=== PATIENT | male | born 1990 | race Caucasian/White ===

== ENCOUNTER → 2024-06-19 14:26 | Outpatient (BNVA) | payer MEDICAID, SELFPAY | PROVIDERS: PCP Nurse Practitioner Family; Visit Provider Physician Assistant | DX: G56.21 Lesion of ulnar nerve, right upper limb; G56.01 Carpal tunnel syndrome, right upper limb | CPT/HCPCS: 73030; 73080 ==

== ENCOUNTER 2024-11-29 09:35 | Day surgery (SDC) | payer MEDICAID, SELFPAY ==
[2024-11-29] VITALS (10 sets, daily range): BP systolic 96–155; BP diastolic 56–98; PULSE 53–84; RESP 15–28; TEMP 36.4–36.9; O2SAT 94–100; BMI 26.9
[2024-11-29] MEDS: acetaminophen 1,000 MG/100 ML PIGGYBACK 400 MG IV (10:03)
[2024-11-29] MEDS: sodium chloride 0.9% 1,000 ML 30 ML IV (10:04)
[2024-11-29] MEDS: ketorolac 30 mg/mL INJ IVP (10:07)
[2024-11-29] MEDS: scopolamine 1 mg PATCH 1 PATCH TRANSDERMA (10:08)
--- NOTE | 2024-11-29 10:55 | W.PM.OPSUD ---
Surgery/Procedure H&P Update DATE OF PROCEDURE: November 29, 2024 DATE H&P PERFORMED: 11/13/24 H&P UPDATE INFORMATION: I have reviewed H&P completed within last 30 days, I have examined patient prior to procedure and No changes to prior documentation PREOP DIAGNOSIS: Right carpal tunnel syndrome, right cubital tunnel syndrome PRIMARY INDICATION FOR PROCEDURE: Right carpal tunnel syndrome, right cubital tunnel syndrome PLANNED PROCEDURE: Operation Date: 11/29/24 11:20 Proposed Procedures p RIGHT Carpal Tunnel Release(Right) - Marquez Guerra DO s RIGHT Cubital Tunnel Release(Right) - Marquez Guerra DO
--- NOTE | 2024-11-29 11:35 | SUR.PREOP ---
1130-block to right subaclavicar performd in ops at bedside by dr dooley. patient tolerated well
--- NOTE | 2024-11-29 11:36 | ANES.PROC ---
Anesthesia Procedures Procedure/Date: 11/29/24 Nerve Block ^: Nerve Block 1: Main Anesthesia: other (100 mcg fentanyl and 2 mg Versed) Time Out Performed: Yes Consent: requested by attending/covering physician and from patient Nerve block location: supraclavicular Anesthesia monitors applied: pulse oximetry, EKG, BP cuff and oxygen Nerve block position: supine Anesthetic Used: ropivicaine 0.5% Amount of anesthesia used (mL): 30 Ultrasound used to: recognize landmarks Nerve Stimulator Used?: Yes Interscalene/Femoral BLK: other needle (pjunk 4inch) Injection: neg aspiration of heme Patient Tolerated Procedure: well Complications: none Additional Comments: Decadron 4 mg added to block
--- NOTE | 2024-11-29 11:37 | ANES.PREANE2 ---
Pre-Anesthetic Assessment Height/Weight: Height 6 ft 2 in Weight 210 lb Temp Pulse Resp BP Pulse Ox O2 Del Method 97.6 F 84 17 155/86 97 Room Air 11/29/24 09:48 11/29/24 09:48 11/29/24 09:48 11/29/24 09:48 11/29/24 09:48 11/29/24 09:48 Preop Diagnosis: Right carpal tunnel syndrome, right cubital tunnel syndrome Operation Date: 11/29/24 11:20 Proposed Procedures p RIGHT Carpal Tunnel Release(Right) - Marquez Charlie, DO s RIGHT Cubital Tunnel Release(Right) - Marquez Charlie, DO Was Beta Carlos taken within 24 hours: N/A Was Clonidine taken within 24 hours: N/A Last intake: Intake Last Liquid Date 11/28/24 Last Liquid Time 23:45 Last Solid Date 11/28/24 Last Solid Time 23:15 Social Tobacco and No alcohol Exam alert, oriented x 3, clear to auscultation bilaterally and regular rate & rhythm Airway Submandibular: within normal limits Cervical ROM: within normal limits Mallampati: Class III Dentition: full Anesthetic Plan ASA status: 2 Anesthesia: Choice Other: No prior issues with anesthesia NPO since yesterday evening Current smoker Denies any cardiac issues METs greater than 4 Plan for preop nerve block Medications/Allergies Home Medications ?Medication ?Instructions ?Recorded ?Confirmed ?Last Taken ?Type celecoxib 50 mg capsule (Celebrex) 50 mg PO BID #30 caps 11/13/24 11/28/24 11/27/24 Rx bupropion HCl 100 mg tablet,12 hr 100 mg PO DAILY 11/28/24 11/28/24 11/28/24 History sustained-release (Wellbutrin SR) hydrocodone 7.5 mg-acetaminophen 1 tab PO Q6H PRN pain #20 tabs 11/29/24 Unknown Rx 325 mg tablet Allergies Allergy/AdvReac Type Severity Reaction Status Date / Time No Known Allergies Allergy Verified 11/29/24 09:45 Current Medications Generic Name Dose Route Start Last Admin Trade Name Freq PRN Reason Stop Dose Admin Sodium Chloride 1,000 mls @ 30 mls/hr 11/29/24 09:45 11/29/24 10:04 Sodium Chloride 0.9% IV 11/30/24 09:44 30 mls/hr .Q24H MARK Administration PFSH Anesthesia Social History Smoking and tobacco/nicotine status: unknown if used tobacco/nicotine
[2024-11-29] MEDS: ceFAZolin 2,000 MG in sodium chloride 0.9% (plus) 50 ML 100 MG IV (13:12)
--- NOTE | 2024-11-29 14:10 | PM.OP ---
Operative Report Date of procedure: November 29, 2024 Surgeon: Marquez Guerra DO Marketing Information Manager: Hammad Guerra PA-C: PA was necessary for assistance in this case with hand positioning to execute the procedure, retraction and protection of neurovascular structures as well as to assist with wound closure and dressing application. Procedure: Preoperative diagnosis: Right carpal tunnel syndrome Right cubital tunnel syndrome postop Diagnosis: Same Procedure done: Right carpal tunnel release Right?cubital tunnel tunnel release (ulnar nerve decompression at elbow) Surgeon: Marquez Guerra DO Estimated blood loss: 10 mL Tourniquet? 14 minutes IV fluids: 700 mL Complications: None Findings: See operative report narrative Condition: stable Disposition: same day Brief History: Patient's been seen and worked up in the outpatient setting and findings consistent with preoperative diagnosis.? Patient has right carpal tunnel syndrome as well as right?cubital tunnel syndrome which has been worked up in the outpatient setting has physical exam findings consistent with this as well as confirmatory nerve conduction study consistent with diagnosis.? Patient's failed conservative treatment.? As result through shared decision making agreed to proceed with? right carpal tunnel and right?cubital tunnel release with possible ulnar nerve transposition we talked about treatment options as far as nonoperative and operative intervention.? Understands risk benefits complication alternatives surgical nonsurgical treatment options.? Understanding his risks he agrees to proceed with surgical intervention. Understanding these risks he agrees to proceed with surgery.? Consent obtained in office. Procedure: Patient seen evaluate in the preoperative holding area.? Consent was reviewed and signed with patient.? Correct extremity marked.? Patient seen evaluated by anesthesia department once cleared for surgery was then taken back to the operative suite placed in supine position all bony prominences well-padded patient properly secured to bed.? right upper extremity placed onto armboard.? Nonsterile tourniquet applied right upper arm.? Patient then underwent anesthesia per the anesthesia department.? Patient's right upper extremity was then prepped and draped in standard orthopedic fashion.? Final timeout performed.? Patient received appropriate preoperative antibiotics. Esmarch was used exsanguinate the right upper extremity.? Tourniquet was insufflated to 250 mmHg. I started with the carpal tunnel release first.? I made a standard open carpal tunnel release starting with the distal most extent in the palm at the Jara's cardinal line and the incision line was made in line with the fourth ray and ended just distal to the wrist crease.? Sharp scalpel incision was made through skin and subcutaneous tissue I then utilizing self retainer then began to dissect with dissection scissors split longitudinally the palmar fascia.? Next I then utilizing my assistant inventory manager Maria Eugenia retractors subsequently utilizing scalpel feathered through the palmaris brevis as well as through the transverse carpal ligament distally.? Once I encountered the floor of the transverse carpal ligament and entered into the carpal tunnel I then switched to dissection scissors.? Carefully released the distal extent of the transverse carpal ligament to the palmar fat.? Care was to protect the recurrent branch and not injured this during this part of the case.? Next I then placed a Leadwood underneath the transverse carpal ligament proximally to protect the nerve in the carpal tunnel contents.? And then I subsequently under loupe magnification utilize my dissection scissors to release the transverse carpal ligament into the antebrachial fascia under direct visualization with care to keep my scissors with a curved ulnarly away from the palmar cutaneous branch.? The transverse carpal was then completely decompressed proximally and a Leadwood was then placed both distally and proximally throughout the carpal tunnel and had complete decompression of the nerve.? The nerve did appear to have hourglass shape as it went through the carpal tunnel.? With significant irritation noted around the nerve.? No masses were noted within the contents of the carpal tunnel.? This completed the carpal tunnel release and then I subsequently irrigated the wound bed and placed a wet Ray-Lela into the incision for later closure. Next marked out the landmarks of the right elbow of the medial epicondyle and olecranon and made a curvilinear incision following the course of the ulnar nerve at the medial aspect of the elbow.? Sharp scalpel incision was made through skin and subcutaneous tissue.? Next I switched to Littler dissection scissors and spread in plane of the medial antebrachial cutaneous nerve branching which was protected throughout this part of the dissection.? Then I directly came down over the fascia and identified the 2 heads of the FCU fascia and split this right in the middle and subsequently identified my ulnar nerve distally.? This was then completely released distally under direct visualization and loupe magnification.? Once the nerve was then identified I then subsequently tracked this proximally and released this through Layton's ligament as well as complete decompression of the nerve proximally all the way past the intermuscular septum.? The nerve was completely released and decompressed both proximally and distally.? Ulnar nerve neurolysis performed and completed both proximally and distally with dissection scissors.? I then took the elbow through range of motion and there was no instability or subluxating of the ulnar nerve.? This completed?cubital tunnel release.? ?Next the wound bed was thoroughly irrigated.? Tourniquet was deflated.? Hemostasis was satisfactory at the?cubital tunnel release surgery site. I then inspected the carpal tunnel incision and this was found to have satisfactory hemostasis and all this was maintained through bipolar electrocautery.? At this point time I sequentially closed?cubital tunnel site with 3-0 Vicryl suture in a running horizontal mattress nylon stitch.? ? The carpal tunnel release surgery was then closed in standard interrupted mattress fashion.? Dressing was Xeroform 4 x 4's ABD Curlex soft roll and an Hero wrap has a bulky soft dressing. Patient was then awakened from anesthesia and taken to PACU in stable condition. Disposition: Patient taken to PACU in stable condition recovering well.? Patient will receive appropriate discharge instructions as well as pain medication postoperatively.? We will follow-up with me in the office in 2 weeks.? Patient understands agrees with current plan.? All questions answered.? He understands if any questions or concerns and contact the office for follow-up appointment..
--- NOTE | 2024-11-29 14:15 | W.PM.BPON ---
Date of Procedure: [November 29, 2024] Surgeon: [Dr. Guerra DO] Olive Brine Tester(s): [Hammad Guerra PA-C] Procedure(s) performed: [Right carpal tunnel release Right cubital tunnel release] Findings of the procedure(s): [Right carpal tunnel syndrome and right cubital tunnel syndrome. No ulnar nerve subluxation with range of motion so no ulnar nerve transposition needed. Procedure went well and is planned.] Estimated blood loss: [10 mL] Specimen(s) removed: [N/A] Post-operative diagnosis: [Right carpal tunnel syndrome and right cubital tunnel syndrome]
--- NOTE | 2024-11-29 14:18 | PM.PACU ---
PACU note Narrative: Patient is a 34-year-old male that just underwent a right carpal tunnel release and right cubital tunnel release. Patient transferred to PACU in stable condition. Pain is well controlled. Dressing on hand is dry and in place. Patient's fingers are warm and well-perfused. normal cap refill under 2 seconds. Unable to assess further motor or sensation due to residual block. Exam: somnolent, arousable Disposition: discharged
[2024-11-29] MEDS: HYDROcodone-acetaminophen 7.5-325 mg Tablet 1 TAB PO (15:03)
--- NOTE | 2024-11-29 15:26 | ANE.PACU2 ---
Inpatient post-anesthesia follow up: Airway intact: Yes Vital signs: Temperature 97.6 F Pulse Rate 81 Respiratory Rate 18 Blood Pressure 124/88 Pulse Oximetry 99 Oxygen Delivery Me thod Room Air Oxygen Flow Rate 10 Fraction of Inspir ed Oxygen Hydration adequate: Yes Nausea and vomiting: No Pain level: 1 Mental status: Baseline
== END 2024-11-29 15:26 | disposition home or self-care (01) ==
PROVIDERS: PCP Nurse Practitioner Primary Care; Visit Provider Student in an Organized Health Care Education/Training Program
PROC: (CPT 64721; principal; 2024-11-29 11:20)
PROC: (CPT 64718; 2024-11-29 11:20)
DX: G56.01 Carpal tunnel syndrome, right upper limb (principal); G56.21 Lesion of ulnar nerve, right upper limb; F17.200 Nicotine dependence, unspecified, uncomplicated
CPT/HCPCS: 64718; 64721; J0131; J0690; J1885; J2250; J2371; J2704; J3010; J3490; J7030; J9999